=== PATIENT | male | born 1980 | race Two or more races ===

== ENCOUNTER 2020-03-31 19:03 | Emergency (ER) | payer SELFPAY ==
[2020-03-31] MEDS ORDERED: Sodium Chloride 0.9% 2.5 ML Syringe FLUSH PRN (19:06)
[2020-03-31] MEDS ORDERED: Sodium Chloride 0.9% 10 ML SDV IV PRN (19:06)
[2020-03-31] MEDS ORDERED: Sodium Chloride 0.9% 10 ML Syringe FLUSH PRN (19:06)
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
--- NOTE | 2020-03-31 19:51 | CR ---
Chest: Frontal view of the chest was obtained. Comparison: No prior chest imaging. Heart size and mediastinum are normal. Lungs are clear. Bony structures are grossly intact. Impression: 1. Nothing acute is seen on frontal chest x-ray. Diagnostic code #1 This report was dictated in MDT
--- NOTE | 2020-03-31 20:06 | CR ---
Right shoulder: 2 views of the right shoulder were obtained. Comparison: No previous shoulder study. Acromioclavicular joint show slight inferior spurring and is mildly narrowed. Glenohumeral joint is normal. No acute fracture or other abnormality is appreciated. Impression: 1. Nothing acute is seen on 3 view right shoulder exam. 2. Mild degenerative change within the acromioclavicular joint. Diagnostic code #2 This report was dictated in MDT
== END 2020-03-31 20:17 | disposition home or self-care (01) ==
LOC: MW.ED 19:03
DX: S00.01XA Abrasion of scalp, initial encounter (principal); M25.511 Pain in right shoulder; R00.0 Tachycardia, unspecified; V86.59XA Driver of other special all-terrain or other off-road motor vehicle injured in nontraffic accident, initial encounter; Y92.828 Other wilderness area as the place of occurrence of the external cause
CPT/HCPCS: 71045; 71045-26; 73030-26-RT; 73030-RT; 93005; 99282; 99284-25